=== PATIENT | female | born 1975 | race Hispanic/Latino ===

== ENCOUNTER 2016-06-21 19:34 | Emergency (ER) | payer OTHER ==
[~2016-06-21] VITALS: Ht 152.4 cm; Wt 99.0 kg
[~2016-06-21 19:34] MED LIST: ALBUTEROL SULF8.5 GM IH; CLARITIN10 MG PO; FLONASE16 G1 BOTH NARES; FLOVENT 11120 INHALA IH; FOLIC ACID0.4 MG PO; IBUPROFEN800 MG PO; MOTRIN800 MG PO; PREDNISONE10 MG PO; PREDNISONE20 MG PO; PRENATAL TABLE1 EAC3 PO; PROAIR HFA8.5 GM IH; ULTRAM50 MG PO
[2016-06-21 20:18] LABS: HEMATOCRIT 34.7 % (36.0-46.0); MCH 26.3 PG (29.0-34.0); MCHC 32.6 G/DL (30.0-36.0); MCV 80.9 FL (83-99); MEAN PLAT.VOLUME 10.5 uM^3 (9.5-12.4); PLATELET COUNT 333 K/uL (156-360); RBC DIS.WIDTH-CV 15.1 % (11.8-14.6); RBC DIS.WIDTH-SD 44.6 % (39-53); RED BLOOD COUNT 4.29 M/uL (3.80-5.20); WHITE BLOOD COUNT 11.1 K/uL (4.1-10.2)
[2016-06-21 20:31] LABS: CHLORIDE 107 mEq/L (99-109); POTASSIUM 3.9 mEq/L (3.7-5.4); SODIUM 137 mEq/L (136-147)
[2016-06-21 20:34] LABS: GLUCOSE 101 mg/dL (70-99)
[2016-06-21 20:35] LABS: ANION GAP 12 MEQ/L (2-14)
[2016-06-21 20:36] LABS: TOTAL BILIRUBIN 0.2 mg/dL (0.0-1.0)
[2016-06-21 20:37] LABS: ALKALINE PHOSPHATASE 90 IU/L (3-129); GFR ESTIMATE (CALCULATED) > 59 mL/min/
[2016-06-21 20:38] LABS: UREA NITROGEN (BUN) 19 mg/dL (9-23)
[2016-06-21 20:41] LABS: LIPASE 17 U/L (1.0-51.0)
[2016-06-21 20:42] LABS: TROP-I INTERPRETATION NEGATIVE; TROPONIN-I < 0.01 ng/mL (0.0-0.30)
[2016-06-21 20:47] LABS: QUANTITATIVE HCG < 4.0 MIU/ML
[2016-06-21 21:35] LABS: ADD MIUA? YES; BILIRUBIN NEGATIVE; BLOOD SMALL; COLOR YELLOW ((YELLOW)); GLUCOSE (STRIP) NEGATIVE; KETONES 20; LEUKOCYTES LARGE; NITRITE NEGATIVE; PROTEIN (STRIP) 30; SPECIFIC GRAVITY 1.034 (1.000-1.030); UROBILINOGEN 0.2 MG/DL (0.2-1.0)
[2016-06-21 21:53] LABS: EPITHELIAL CELLS 2+ /HPF; RED BLOOD CELLS 30-40 /HPF (0-5); UCUL ADDED? NO; WHITE BLOOD CELLS 30-40 /HPF (0-5)
[2016-06-21 22:22] LABS: BACTERIA 1+ /HPF; MUCUS RARE /LPF
[2016-06-21 22:23] LABS: CASTS NONE SEEN /LPF; CRYSTALS NONE SEEN
[2016-06-22] MEDS ORDERED: NORCO 5/3251 TABLET PO (01:45)
[2016-06-22] MEDS ORDERED: CIPRO500 MG PO (01:45)
[2016-06-22] MEDS ORDERED: ZOFRAN8 MG PO (01:45)
[2016-06-22 03:08] VITALS: BP 122/62
== END 2016-06-22 03:08 | disposition home or self-care (01) ==
LOC: EME 19:34
DX: N20.0 Calculus of kidney (principal); N30.01 Acute cystitis with hematuria; D64.9 Anemia, unspecified; R11.2 Nausea with vomiting, unspecified; R07.9 Chest pain, unspecified; J45.909 Unspecified asthma, uncomplicated
CPT/HCPCS: 71020; 74177; 80053; 81003; 83605; 83690; 84484; 84702; 85027; 87040; 93005; 99281; 99284; J0744; J1885; J2270; J2405; J7030